=== PATIENT | female | born 1950 | race African-American/Black ===

== ENCOUNTER 2017-01-21 11:58 | Emergency (ER) | payer MEDICAID ==
[~2017-01-21] VITALS: Ht 167.6 cm; Wt 70.0 kg
[~2017-01-21 11:58] MED LIST: ACET-1953; AMLO10TA80; ASPI-785
[2017-01-21 13:03] LABS: BASOPHILS % 0.5 % (0.0-2.0); EOSINOPHILS % 0.5 % (0.0-5.0); HEMATOCRIT. 39.6 % (36.0-48.0); LYMPHOCYTES % 14.9 % (20.0-50.0); MEAN CORPUSCULAR HEMOGLOBIN 26.1 pg (28.0-32.0); MEAN CORPUSCULAR VOLUME 79.7 fL (81.0-99.0); MEAN PLATELET VOLUME 8.4 fl (7.4-10.4); MONOCYTES % 6.7 % (2.0-8.0); NEUTROPHILS % 77.4 % (40.0-76.0); PLATELET 192 x1000/uL (130-400); RED BLOOD CELL COUNT 4.97 mill/uL (4.2-5.4); RED CELL DISTRIBUTION WIDTH 16.7 % (11.6-14.6)
[2017-01-21 13:10] LABS: CHLORIDE 106 mEq/L (98-107)
[2017-01-21 13:11] LABS: PROTHROMBIN TIME 10.8 sec (9.4-11.6)
[2017-01-21 13:19] LABS: CARBON DIOXIDE 31 mEq/L (21-32)
[2017-01-21 16:32] VITALS: BP 134/78
== END 2017-01-21 16:50 | disposition home or self-care (01) ==
LOC: ER 12:02
DX: E11.649 Type 2 diabetes mellitus with hypoglycemia without coma (principal); R03.0 Elevated blood-pressure reading, without diagnosis of hypertension; Z79.4 Long term (current) use of insulin; Z79.84 Long term (current) use of oral hypoglycemic drugs; Z79.82 Long term (current) use of aspirin
CPT/HCPCS: 36415; 80053; 82962; 85025; 85610; 99284; Z7610

== ENCOUNTER 2017-01-21 21:50 | Emergency (ER) | payer MEDICAID ==
[~2017-01-21] VITALS: Ht 170.2 cm; Wt 97.0 kg
[2017-01-22] MEDS: KETOROLAC 30MG/ML VIAL IM ONE (02:34)
[2017-01-22] MEDS: ONDANSETRON 4MG ODT PO ONE (02:34)
[2017-01-22 02:52] LABS: ETHANOL BLOOD < 10 mg/dL
[2017-01-22 03:03] LABS: COLOR URINE YELLOW (YELLOW)
[2017-01-22 03:04] LABS: CLARITY URINE CLOUDY (CLEAR); GLUCOSE URINE 2+ (NEGATIVE); KETONES URINE NEGATIVE (NEGATIVE); NITRITE URINE NEGATIVE (NEGATIVE); OCCULT BLOOD URINE NEGATIVE (NEGATIVE); PROTEIN URINE NEGATIVE (NEGATIVE); SPECIFIC GRAVITY URINE 1.031 (1.005-1.030)
[2017-01-22 03:05] LABS: LEUKOCYTE ESTERASE URINE TRACE (NEGATIVE)
[2017-01-22 04:29] LABS: *AMPHETAMINES SCREEN URINE NEGATIVE (NEGATIVE); *BENZODIAZEPINES SCREEN URINE NEGATIVE (NEGATIVE); *COCAINE SCREEN URINE NEGATIVE (NEGATIVE); CANNABINOID URINE SCREEN NEGATIVE (NEGATIVE); METHADONE URINE SCREEN NEGATIVE (NEGATIVE); PHENCYCLIDINE URINE SCREEN PRESUMTIVE POSITIVE (NEGATIVE)
[2017-01-22 04:34] LABS: *BARBITURATES SCREEN URINE NEGATIVE (NEGATIVE); OPIATES URINE SCREEN PRESUMTIVE POSITIVE (NEGATIVE)
[2017-01-22] MEDS: ACETAMINOPHEN 325MG TABLET PO ONE (05:50)
[2017-01-22 07:18] LABS: BASOPHILS % 0.6 % (0.0-2.0); EOSINOPHILS % 1.7 % (0.0-5.0); HEMATOCRIT. 36.1 % (36.0-48.0); HEMOGLOBIN. 11.8 g/dL (12.0-16.0); LYMPHOCYTES % 29.4 % (20.0-50.0); MEAN CORPUSCULAR HEMOGLOBIN 25.9 pg (28.0-32.0); MEAN CORPUSCULAR VOLUME 79.4 fL (81.0-99.0); MEAN PLATELET VOLUME 8.5 fl (7.4-10.4); NEUTROPHILS % 61.3 % (40.0-76.0); PLATELET 172 x1000/uL (130-400); RED BLOOD CELL COUNT 4.54 mill/uL (4.2-5.4); RED CELL DISTRIBUTION WIDTH 16.4 % (11.6-14.6)
[2017-01-22 11:21] VITALS: BP 130/79
== END 2017-01-22 11:28 | disposition home or self-care (01) ==
LOC: ER 21:50
DX: R41.82 Altered mental status, unspecified (principal); E11.9 Type 2 diabetes mellitus without complications; Z79.82 Long term (current) use of aspirin
CPT/HCPCS: 36415; 80305; 80307; 80329; 81001; 82962; 85025; 96372; 99284; G0482; J1885; Q0162; Z7610

== ENCOUNTER 2020-12-03 06:24 | Emergency (ER) | payer MEDICAID ==
[~2020-12-03] VITALS: Ht 170.2 cm; Wt 73.0 kg
[2020-12-03 16:51] VITALS: BP 109/84
== END 2020-12-03 16:52 | disposition home or self-care (01) ==
LOC: ER 06:24
DX: F32.9 Major depressive disorder, single episode, unspecified (principal); E11.9 Type 2 diabetes mellitus without complications; Z87.440 Personal history of urinary (tract) infections
CPT/HCPCS: 99281